=== PATIENT | female | born 1990 | race Two or more races ===

== ENCOUNTER → 2024-05-03 | Outpatient (REF) | payer OTHER | LOC: M SFHCWAGY 17:01 | PROVIDERS: ATTEND Advanced Practice Midwife | DX: Z36.85 Encounter for antenatal screening for Streptococcus B (principal); Z3A.35 35 weeks gestation of pregnancy ==

== ENCOUNTER → 2024-05-08 | Outpatient (CLI) | payer OTHER ==
[2024-05-08 10:26] LABS: ALBUMIN 2.5 G/DL (3.2-5.2); ALKALINE PHOSPHATASE 261 U/L (35-104); ALT/SGPT 55 U/L (7.0-40); AST/SGOT 49 U/L (<34); BILIRUBIN,TOTAL 0.3 MG/DL (0.3-1.2); BLOOD UREA NITROGEN 8 MG/DL (9-23); CARBON DIOXIDE LEVEL 26 MMOL/L (20-31); CHLORIDE LEVEL 105 MMOL/L (98-107); CREATININE FOR GFR 0.53 MG/DL (0.55-1.30); GLOMERULAR FILTRATION RATE > 60.0 (>60); GLUCOSE, FASTING 89 MG/DL (60-100); POTASSIUM SERUM 4.3 MMOL/L (3.5-5.1); SODIUM LEVEL 137 MMOL/L (136-145); TOTAL PROTEIN 6.4 G/DL (5.7-8.2)
== END ==
LOC: M PLALAB 08:14
PROVIDERS: ATTEND Advanced Practice Midwife
DX: O99.713 Diseases of the skin and subcutaneous tissue complicating pregnancy, third trimester (principal); L29.9 Pruritus, unspecified

== ENCOUNTER 2024-05-14 12:14 | Inpatient (IN) | payer OTHER ==
[2024-05-14] VITALS (14 sets, daily range): BP systolic 102–119; BP diastolic 57–75
[~2024-05-14] VITALS: Ht 157.5 cm; Wt 70.7 kg
[2024-05-14] MEDS ORDERED: METHYLERGONOVINE MALEATE 0.2MG/ML 1ML VIAL IM PRN (12:30)
[2024-05-14] MEDS ORDERED: TRANEXAMIC ACID INJection 1,000 MG in NS 100 ML IV PRN (12:30)
[2024-05-14] MEDS ORDERED: CARBOPROST TROMETHAMINE 250 MCG/ML AMP IM PRN (12:30)
[2024-05-14] MEDS ORDERED: OXYTOCIN INJ 10UNITS/ML 1ML VIAL IM PRN (12:30)
[2024-05-14] MEDS ORDERED: LIDOCAINE 1% MDV 20ML VIAL INFIL PRN (12:30)
[2024-05-14] MEDS ORDERED: OXYTOCIN DRIP 30 UNITS in IV 1 EA IV PRN (12:30)
[2024-05-14] MEDS ORDERED: ACET-907 PO (12:41)
[2024-05-14] MEDS ORDERED: FAMO20TA PO (12:41)
[2024-05-14] MEDS ORDERED: IRON65TA2 PO (12:41)
[2024-05-14] MEDS ORDERED: PRENTAB9 PO (12:41)
[2024-05-14] MEDS ORDERED: ONDA-282 PO (12:41)
[2024-05-14] MEDS ORDERED: COLA100C5 PO (12:42)
[2024-05-14] MEDS ORDERED: HOME MED LIST COMPLETE! XX SCH (12:45)
[2024-05-14 13:57] LABS: MEAN CORPUSCULAR HEMOGLOBIN 30.1 pg (27.0-33.0); MEAN CORPUSCULAR HGB CONC 32.4 g/dl (32.0-36.5); MEAN CORPUSCULAR VOLUME 92.9 fl (80.0-96.0); PLATELET COUNT, AUTOMATED 210 10^3/uL (150-450); RED BLOOD COUNT 3.66 10^6/uL (4.00-5.40); WHITE BLOOD COUNT 8.5 10^3/uL (4.0-10.0)
[2024-05-14] MEDS: miSOPROStol 50MCG 1/2 TABLET PO SCH (14:05)
[2024-05-14 14:25] LABS: ALBUMIN 2.6 G/DL (3.2-5.2); ALKALINE PHOSPHATASE 245 U/L (35-104); ALT/SGPT 57 U/L (7.0-40); AST/SGOT 64 U/L (<34); BILIRUBIN,TOTAL 0.4 MG/DL (0.3-1.2); BLOOD UREA NITROGEN 10 MG/DL (9-23); CALCIUM LEVEL 9.6 MG/DL (8.5-10.1); CARBON DIOXIDE LEVEL 24 MMOL/L (20-31); CHLORIDE LEVEL 107 MMOL/L (98-107); CREATININE FOR GFR 0.52 MG/DL (0.55-1.30); GLOMERULAR FILTRATION RATE > 60.0 (>60); GLUCOSE, FASTING 72 MG/DL (60-100); POTASSIUM SERUM 4.6 MMOL/L (3.5-5.1); SODIUM LEVEL 137 MMOL/L (136-145); TOTAL PROTEIN 6.7 G/DL (5.7-8.2)
[2024-05-14 15:05] LABS: HEPATITIS C VIRUS ABY INDEX < 0.02 INDEX (<0.8)
[2024-05-14] MEDS: LR 1,000 ML IV SCH (19:07)
[2024-05-14] MEDS: OXYTOCIN DRIP 30 UNITS in IV 1 EA IV SCH (19:07)
[2024-05-14] MEDS: CALCIUM CARBONATE 500 MG CHEW U/D PO PRN (19:33)
[2024-05-15] VITALS (32 sets, daily range): BP systolic 83–120; BP diastolic 48–71; O2SAT 97–98
[2024-05-15] MEDS ORDERED: NALOXONE INJ 0.4MG/1ML VIAL IV PRN (00:45)
[2024-05-15] MEDS ORDERED: LR 500 ML IV PRN (00:45)
[2024-05-15] MEDS ORDERED: EPIDURAL/PCA KEYS XX PRN (00:45)
[2024-05-15] MEDS: FENTANYL/ROPIVACAINE/NACL BAG 100 ML EPIDURAL SCH (00:50)
[2024-05-15] MEDS: LACTATED RINGER'S 1000 ML IV STA (01:20)
[2024-05-15] MEDS: ePHEDrine SULFATE 25 MG/5 ML(5MG/ML) SYRINGE IVP PRN (03:39)
[2024-05-15] MEDS: ONDANSETRON 4MG 2ML VIAL IV PRN (04:24)
[2024-05-15] MEDS ORDERED: MOM 30ML SUSPENSION UDC PO PRN (05:45)
[2024-05-15] MEDS ORDERED: IBUPROFEN 600MG TAB PO PRN (05:45)
[2024-05-15] MEDS ORDERED: DIBUCAINE 1% OINTMENT 30GM TOP PRN (05:45)
[2024-05-15] MEDS ORDERED: ANUSOL HC CREAM 30GM TOP PRN (05:45)
[2024-05-15] MEDS ORDERED: ACETAMINOPHEN 325 MG TAB PO PRN (05:45)
[2024-05-15] MEDS: diphenhydrAMINE 50MG/ML VIAL IV PRN (05:50)
[2024-05-15] MEDS: diphenhydrAMINE 25MG CAP PO ONE (07:54)
[2024-05-15] MEDS: ACETAMINOPHEN 500 MG TAB PO PRN (08:35)
[2024-05-15] MEDS: PRENATAL VITAMINS CHEWABLE TABLET PO SCH (08:35)
[2024-05-15] MEDS: RHOGAM 300MCG (1500IU) INJ IM SCH (09:51)
[2024-05-15] MEDS ORDERED: SLF 3 ML SYR IV PRN (10:05)
[2024-05-15] MEDS: SLF 3 ML SYR IV SCH (13:54)
[2024-05-15] MEDS: IBUPROFEN 800 MG TAB PO PRN (17:03)
[2024-05-15] MEDS: ESCITALOPRAM OXALATE 5MG TABLET (LEXAPRO) PO SCH (20:36)
[2024-05-16 06:00] VITALS: BP 99/60; O2SAT 99
[2024-05-16] MEDS: DOCUSATE SODIUM 100MG CAPSULE PO PRN (07:35)
[2024-05-16] MEDS ORDERED: COLA100C5 PO (09:03)
[2024-05-16] MEDS ORDERED: IRON65TA2 PO (09:03)
[2024-05-16] MEDS ORDERED: IBUP-1022 PO (09:03)
[2024-05-16] MEDS ORDERED: LEXA5TAB13 PO (09:03)
[2024-05-17] MEDS ORDERED: MEASLES,MUMPS,RUBELLA VACCINE INJ (MMR-II) SC.IMMUN ONE (09:00)
== END 2024-05-16 11:24 | disposition home or self-care (01) | DRG 807 ==
LOC: M LDI 12:14 → M OBS 05-15 08:05
PROVIDERS: ADMIT Advanced Practice Midwife; ATTEND Advanced Practice Midwife
PROC: 3E033VJ Introduction of Other Hormone into Peripheral Vein, Percutaneous Approach (ICD-10-PCS; 2024-05-14)
PROC: 3E0P7GC Introduction of Other Therapeutic Substance into Female Reproductive, Via Natural or Artificial Opening (ICD-10-PCS; 2024-05-14)
PROC: 10E0XZZ Delivery of Products of Conception, External Approach (ICD-10-PCS; principal; 2024-05-15)
DX: O26.62 Liver and biliary tract disorders in childbirth (principal); Z37.0 Single live birth; Z3A.37 37 weeks gestation of pregnancy; F17.290 Nicotine dependence, other tobacco product, uncomplicated; O09.523 Supervision of elderly multigravida, third trimester; O99.334 Smoking (tobacco) complicating childbirth; O34.5 Maternal care for other abnormalities of gravid uterus

== ENCOUNTER → 2024-05-22 | Outpatient (REF) | payer OTHER ==
[~2024-05-22] MED LIST: ACET-907 PO; COLA100C5 PO; FAMO20TA PO; IBUP-1022 PO; IRON65TA2 PO; LEXA5TAB13 PO; ONDA-282 PO; PRENTAB9 PO
== END ==
LOC: M SFHCWAGY 16:57
PROVIDERS: ATTEND Specialist
DX: N39.0 Urinary tract infection, site not specified (principal)

== ENCOUNTER → 2024-06-14 | Outpatient (REF) | payer OTHER ==
[2024-06-14 15:47] LABS: APPEARANCE, URINE HAZY (CLEAR); BACTERIA, URINE AUTO NEGATIVE (NEGATIVE); BILIRUBIN, URINE AUTO NEGATIVE (NEGATIVE); BLOOD, URINE BLOOD NEGATIVE (NEGATIVE); COLOR, URINE YELLOW (YELLOW); GLUCOSE, URINE (UA) AUTO NEGATIVE (NEGATIVE); KETONE, URINE AUTO NEGATIVE (NEGATIVE); LEUKOCYTE ESTERASE, URINE AUTO NEGATIVE (NEGATIVE); MUCUS, URINE SMALL (NEGATIVE); NITRITE, URINE AUTO NEGATIVE (NEGATIVE); PROTEIN, URINE AUTO NEGATIVE (NEGATIVE); RBC, URINE AUTO 0 /HPF (0-3); SPECIFIC GRAVITY URINE AUTO 1.021 (1.002-1.035); SQUAMOUS EPITHELIAL CELL UR AU 2 /HPF (0-6); UROBILINOGEN, URINE AUTO 0.2 mg/dL (0.0-2.0); WBC, URINE AUTO 1 /HPF (0-3)
== END ==
LOC: M SFHCWAGY 15:10
PROVIDERS: ATTEND Advanced Practice Midwife
DX: R39.89 Other symptoms and signs involving the genitourinary system (principal)

== ENCOUNTER → 2024-09-20 | Outpatient (CLI) | payer OTHER | LOC: M EKG 13:07 | PROVIDERS: ATTEND Internal Medicine | DX: R00.2 Palpitations (principal) ==